=== PATIENT | female | born 1955 | race Caucasian/White ===

== ENCOUNTER 2019-10-30 14:05 | Emergency (ER) | payer BC, SELFPAY ==
[2019-10-30 14:09] VITALS: BP 134/85; PULSE 75; RESP 16; TEMP 36.5; O2SAT 98
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
[2019-10-30 16:13] VITALS: BP 127/75; PULSE 76; RESP 16; TEMP 36.7; O2SAT 98
== END 2019-10-30 16:17 | disposition home or self-care (01) ==
LOC: ER 15:22
PROVIDERS: Emergency Provider Physician Assistant
DX: S52.022A Displaced fracture of olecranon process without intraarticular extension of left ulna, initial encounter for closed fracture (principal); S40.212A Abrasion of left shoulder, initial encounter; S80.812A Abrasion, left lower leg, initial encounter; V18.0XXA Pedal cycle driver injured in noncollision transport accident in nontraffic accident, initial encounter; Y93.55 Activity, bike riding
CPT/HCPCS: 24670; 90471; 73080; L3650